=== PATIENT | female | born 2005 ===

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

== ENCOUNTER 2025-06-20 21:47 | Emergency (ER) | payer OTHER, SELFPAY ==
--- NOTE | ~2025-06-20 | XR_ITS ---
CLINICAL HISTORY: pain 1 view chest x-ray. Comparison: None provided Findings: The lungs appear clear. There is no consolidation, effusion, or pneumothorax. Cardiomediastinal silhouette is within normal limits. IMPRESSION: No acute cardiopulmonary abnormality. This document has been electronically signed by: Tyler Norris MD on 06/21/2025 02:28:36
[2025-06-20 22:19] VITALS: BP 105/59; PULSE 89; RESP 16; TEMP 36.8; O2SAT 100; BMI 20.8
--- NOTE | 2025-06-20 22:29 | PC.NURSE ---
urine cups given and educated on obtaining dirty urine for CTNG and clean catch urine for UA. pt verbalizes understanding.
[2025-06-20 22:46] LABS: MANUAL DIFF FLAG NO
[2025-06-20 22:47] LABS: Hematocrit 31.7 % (37.0-47.0); Hemoglobin 10.5 g/dl (12.0-16.0); Imm Gran Abs Auto 0.03 X10*3/uL (0.00-0.03); Imm Gran Pct Auto 0.3 % (0.0-0.4); Lymphocytes Absolute Auto 2.5 X10*3/uL (1.2-4.9); Mean Corpuscular HGB Conc 33.1 g/dl (31.0-35.0); Mean Corpuscular Hemoglobin 28.0 pg (27.0-33.0); Mean Corpuscular Volume 84.5 fL (80.0-98.0); NRBC Abs Auto 0.000 X10*3/uL (0.0-0.012); NRBC Pct Auto 0.0 /100WBC (0.0-0.2); Platelet Count 330 X10*3/uL (160-400); Red Blood Count 3.75 X10*6/uL (4.20-5.50); White Blood Count 9.2 X10*3/uL (4.8-10.8)
[2025-06-20 22:48] LABS: Appearance Urine Clear; Glucose Urine UA Negative (Negative); PH 6.0 (5.0-9.0); Specific Gravity - Urine 1.015 (1.005-1.025); UMIC TRIGGER UACC YES
[2025-06-20 23:07] LABS: Alanine Aminotransferase 8 U/L (0-31); Albumin Level 4.3 g/dL (3.5-5.0); Alkaline Phosphatase 51 U/L (39-117); Anion Gap 13 (12-20); Aspartate Amino Transferase 19 U/L (5-31); Blood Urea Nitrogen 9 mg/dL (9-16); Calcium 8.9 mg/dL (8.4-10.2); Carbon Dioxide 21 mmol/L (22-29); Chloride 111 mmol/L (96-108); Creatinine Clr Calc Pharmacy 91.5; Estimated Glomerular Filt Rate > 60; Lipase 33 U/L (8-78); Magnesium 1.9 mg/dL (1.6-2.6); Potassium 3.7 mmol/L (3.3-5.1); Sodium 141 mmol/L (135-145); Total Protein 7.2 g/dL (6.5-8.0)
[2025-06-20 23:55] VITALS: BP 115/67; PULSE 90; RESP 17; O2SAT 100
--- OUTSIDE RECORDS SUMMARY | 2025-06-21 00:04 | XMS_ITS | Clinical Summary ---
Author Organization [facility] Address [address] [place] [address] Phone Care Team Providers Care Fermentologist Name Role Phone Physician, No Pcp Primary Care Provider Unavaila ble Allergies No known active allergies Encounters Date Type Department Care Team Description 04/25/2025 5:24 AM EDT - 04/25/2025 5:55 AM EDT Emergency [facility] Emergency [address] [place] [address] Braden Sequeira MD Strep pharyngitis (Primary Dx); Hypomagnesemia; Hypokalemia; Anemia, unspecified type Discharge Disposition: Home or Self Care from Last 3 Months Social History Tobacco Use Types Packs/Day Years Used Date Smoking Tobacco: Never Assessed Comments Unknown Sex and Gender Information Value Date Recorded Sex Assigned at Not on file Legal Sex Female 12:19 AM EDT Gender Identity Not on file Sexual Orientation Not on file Last Filed Vital Signs Vital Sign Reading Time Taken Comments Blood Pressure 102/58 04/25/2025 5:35 AM EDT Pulse 111 04/25/2025 5:35 AM EDT Temperature 38 C (100.4 F) 04/25/2025 5:35 AM EDT Respiratory Rate 18 04/25/2025 5:35 AM EDT Oxygen Saturation 100% 04/25/2025 5:35 AM EDT Inhaled Oxygen Concentration - - Weight 49.9 kg (110 lb) 04/25/2025 12:24 AM EDT Height 154.9 cm (5' 1 ) 04/25/2025 12:24 AM EDT Body Mass Index 20.78 04/25/2025 12:24 AM EDT Plan of Treatment Health Maintenance Due Date Last Done Comments Gonorrhea/Chlamydia Screening 2004 Varicella Vaccines (1 of 2 - 13+ 2-dose series) 2017 HPV Vaccines (1 - 3-dose series) 2019 Meningococcal B Vaccine (1 o f 2 - Standard) 2020 DTaP,Tdap,and Td Vaccines (1 - Tdap) 2023 Hepatitis B Vaccines (1 of 3 - 19+ 3-dose series) 2023 Depression Screening 09/14/2024 Annual Well Child Visit (3-2 1 years old) 04/25/2025 HIV Screening 04/25/2025 Hepatitis C Screening 04/25/2025 Social Influencers of Health Screening 04/25/2025 COVID-19 Vaccine (1 - 2023-2 5 season) 2025 Influenza Vaccine (#1) 2025 RSV Immunization Adult Patie nts (1 - 1-dose 75+ series) 2079 HIB Vaccines Aged Out No longer eligi ble based on patient's age to complete this topic Hepatitis A Vaccines Aged Out No long er eligible based on patient's age to complete this topic IPV Vaccines Aged Out No longer eligi ble based on patient's age to complete this topic MMR Vaccines Aged Out No longer eligi ble based on patient's age to complete this topic Meningococcal ACWY Vaccine Aged Out N o longer eligible based on patient's age to complete this topic Pneumococcal Vaccine: Pediat rics (0 to 5 Years) and At-Risk Patients (6 to 49 Years) Aged Out No longer eligible b ased on patient's age to complete this topic RSV Immunization Patients Un alfred 20 months Aged Out No longer eligible b ased on patient's age to complete this topic Procedures Procedure Name Priority Date/Time Associated Diagnosis Comments CAMPOS URINE CULTURE TUBE STAT 04/25/2025 3:08 AM EDT URINALYSIS WITH REFLEX MICROSCOPIC AND CULTURE STAT 04/25/2025 3:08 AM EDT URINALYSIS WITH REFLEX MICROSCOPIC AND CULTURE STAT 04/25/2025 3:08 AM EDT CULTURE URINE STAT 04/25/2025 3:08 AM EDT POC , URINE DIAGNOSTIC STAT 04/25/2025 2:43 AM EDT ECG 12-LEAD STAT 04/25/2025 12:36 AM EDT RAPID STREP A SCREEN STAT 04/25/2025 12:32 AM EDT RESPIRATORY VIRUS PANEL MOLECULAR STUDY STAT 04/25/2025 12:32 AM EDT CBC WITH AUTO DIFFERENTIAL STAT 04/25/2025 12:29 AM EDT MAGNESIUM STAT 04/25/2025 12:29 AM EDT BASIC METABOLIC PANEL STAT 04/25/2025 12:29 AM EDT CBC AND DIFFERENTIAL STAT 04/25/2025 12:29 AM EDT ECG ANNOTATED 04/25/2025 from Last 3 Months Results * (ABNORMAL) Urinalysis with reflex microscopic and culture (04/25/2025 3:08 AM EDT) Specific [place] Urine 1.031(H) 1.003 - 1.030 LAB URINALYSIS - AUTOMATED METHOD 04/25/2025 3:48 AM EDT [facility] pH, Urine 6.0 5.0 - 8.0 pH LAB URINALYSIS - AUTOMATED METHOD 04/25/2025 3:48 AM T [facility] Leukocytes, Urine Trace(A) Negative LAB URINALYSIS - AUTOMATED METHOD 04/25/2025 3:48 AM [facility] Nitrite, Urine Negative Negative LAB URINALYSIS - AUTOMATED METHOD 04/25/2025 3:48 AM EDT [facility] Protein, Urine 100(A) <=Trace mg/dL LAB URINALYSIS - AUTOMATED METHOD 04/25/2025 3:48 AM [facility] Glucose, Urine Negative Negative mg/dL LAB URINALYSIS - AUTOMATED METHOD 04/25/2025 3:48 AM [facility] Ketones, Urine >=80(A) Negative mg/dL LAB URINALYSIS - AUTOMATED METHOD 04/25/2025 3:48 AM [facility] Urobilinogen, Urine 1.0 0.2 - 1.0 mg/dL LAB URINALYSIS - AUTOMATED METHOD 04/25/2025 3:48 AM [facility] Bilirubin, Urine Negative Negative LAB URINALYSIS - AUTOMATED METHOD 04/25/2025 3:48 AM [facility] Blood, Urine Large(A) Negative LAB URINALYSIS - AUTOMATED METHOD 04/25/2025 3:48 AM [facility] RBC, Urine 4 0 - 4 /HPF LAB URINALYSIS - AUTOMATED METHOD 04/25/2025 3:48 AM [facility] WBC, Urine 17.2(H) 0 - 4 /HPF LAB URINALYSIS - AUTOMATED METHOD 04/25/2025 3:48 AM [facility] Squamous Epithelial, Urine >100(H) 0 - 60 /LPF LAB URINALYSIS - AUTOMATED METHOD 04/25/2025 3:48 AM [facility] Bacteria, Urine Few(A) Negative /HPF LAB URINALYSIS - AUTOMATED METHOD 04/25/2025 3:48 AM [facility] Hyaline Casts, Urine 3.2(H) 0 - 3 /LPF LAB URINALYSIS - AUTOMATED METHOD 04/25/2025 3:48 AM [facility] Urine Urine specimen obtained by clean catch procedure / Unknown Non-blood Collection / Unknown 04/25/2025 3:08 AM EDT 04/25/2025 3:08 AM EDT us Femi Louis MD LAB URINE ORDERABLES Final Result Performing Organization Address [facility]/ZIP Co de Phone Number [facility] [address] [place] [address], [place] [phone] * Campos urine culture tube (04/25/2025 3:08 AM EDT) Extra Tube Hold for add-ons. 04/25/2025 5:01 AM EDT [facility] Comment:Auto resulted. Urine Urine specimen obtained by clean catch procedure / Unknown Non-blood Collection / Unknown 04/25/2025 3:08 AM EDT 04/25/2025 3:08 AM EDT Femi Louis MD LAB URINE ORDERABLES Final Result Performing Organization Address [facility] de Phone Number [facility] [address] [place] [address], * Culture urine (04/25/2025 3:08 AM EDT) Culture, Urine >100,000 CFU/mL Mixed bacterial morphotypes present suggestive of possible contamination during collection. Suggest appropriate recollection if clinically indicated. 04/27/2025 11:49 AM EDT [facility] Urine Urine specimen obtained by clean catch procedure / Unknown Non-blood Collection / Unknown 04/25/2025 3:08 AM EDT 04/25/2025 3:48 AM EDT Narrative [facility] - 04/27/2025 11:49 AM EDT Beta Strep Group B noted. The presence of a low colony count of Beta Strep Group B may have clinical significance in women. Femi Louis MD LAB MICROBIOLOGY - GENERAL ORDERABLES Final Result Performing Organization Address City/[facility]/ZIP Co de Phone Number [facility] [address] [place] [address], * POC , urine manually resulted (04/25/2025 2:43 AM EDT) [facility] HCG, Ur POC Negative Negative POC hCG Int QC Pass? Yes Yes Urine Urine specimen obtained by clean catch procedure / Unknown 04/25/2025 2:43 AM EDT Femi Louis MD POINT OF CARE TEST ENTER/ED IT ORDERABLES Final Result * ECG 12 lead (04/25/2025 12:36 AM EDT) [facility] Ventricular Rate ECG 107 BPM GEMUSE Atrial Rate 107 BPM GEMUSE P-R Interval 140 ms GEMUSE QRS Duration 76 ms GEMUSE Q-T Interval 324 ms GEMUSE QTc 432 ms GEMUSE P Wave Royal 67 degrees GEMUSE R Royal 71 degrees GEMUSE T Royal 5 degrees GEMUSE ECG Interpretation Sinus tachycardia No previous ECGs available Confirmed by ROM LEIVA ([id number]) on 04/25/2025 11:39:58 PM GEMUSE 04/25/2025 12:3 6 AM EDT 04/25/2025 11:39 PM EDT Femi Louis MD ECG ORDERABLES Final Resul t GEMUSE * Respiratory virus panel molecular study (04/25/2025 12:32 AM EDT) [facility] Adenovirus Detection by PCR Not Detected Not Detected LAB MICROBIOLOGY METHOD 04/25/2025 2:10 AM EDT [facility] Influenza A PCR Not Detected Not Detected LAB MICROBIOLOGY METHOD 04/25/2025 2:10 AM EDT [facility] Influenza B PCR Not Detected Not Detected LAB MICROBIOLOGY METHOD 04/25/2025 2:10 AM EDT [facility] Coronavirus 229E Not Detected Not Detected LAB MICROBIOLOGY METHOD 04/25/2025 2:10 AM EDT [facility] Coronavirus HKU1 Not Detected Not Detected LAB MICROBIOLOGY METHOD 04/25/2025 2:10 AM EDT [facility] Coronavirus OC43 Not Detected Not Detected LAB MICROBIOLOGY METHOD 04/25/2025 2:10 AM EDT [facility] Coronavirus NL63 Not Detected Not Detected LAB MICROBIOLOGY METHOD 04/25/2025 2:10 AM EDT [facility] Parainfluenza Virus 1 Not Detected Not Detected LAB MICROBIOLOGY METHOD 04/25/2025 2:10 AM EDT [facility] Parainfluenza Virus 2 Not Detected Not Detected LAB MICROBIOLOGY METHOD 04/25/2025 2:10 AM EDT [facility] Parainfluenza Virus 3 Not Detected Not Detected LAB MICROBIOLOGY METHOD 04/25/2025 2:10 AM EDT [facility] Parainfluenza Virus 4 Not Detected Not Detected LAB MICROBIOLOGY METHOD 04/25/2025 2:10 AM EDT [facility] RSV PCR Not Detected Not Detected LAB MICROBIOLOGY METHOD 04/25/2025 2:10 AM EDT [facility] Human Metapneumovirus A and B Not Detected Not Detected LAB MICROBIOLOGY METHOD 04/25/2025 2:10 AM EDT [facility] Rhinovirus/Entero virus Not Detected Not Detected LAB MICROBIOLOGY METHOD 04/25/2025 2:10 AM EDT [facility] Bordetella pertussis Not Detected Not Detected LAB MICROBIOLOGY METHOD 04/25/2025 2:10 AM EDT [facility] Bordetella parapertussis Not Detected Not Detected LAB MICROBIOLOGY METHOD 04/25/2025 2:10 AM EDT [facility] Mycoplasma pneumo by PCR Not Detected Not Detected LAB MICROBIOLOGY METHOD 04/25/2025 2:10 AM EDT [facility] Chlamydia pneumoniae Not Detected Not Detected LAB MICROBIOLOGY METHOD 04/25/2025 2:10 AM EDT [facility] SARS COV-2 Not Detected Not Detected LAB MICROBIOLOGY METHOD 04/25/2025 2:10 AM EDT [facility] Swab Both anterior nares / Unknown Non-blood Collection / Unknown 04/25/2025 12:32 AM EDT 04/25/2025 1:13 AM EDT Narrative [facility] - 04/25/2025 2:10 AM EDT Testing was performed using the Companion Canine Respiratory Pathogen PCR Assay. All results must be correlated with the clinical findings. Results should not be used as the sole basis for diagnosis. False Negative results may occur from the presence of sequence variants in the region targeted by the assay or the presence of inhibitors. Results may be affected by concurrent antiviral/antimicrobial therapy or levels of organisms that are below the limit of detection. Femi Louis MD LAB MICROBIOLOGY - GENERAL ORDERABLES Final Result Performing Organization Address [facility]/ZIP Co de Phone Number [facility] [address] [place] [address], * (ABNORMAL) Rapid strep A screen (04/25/2025 12:32 AM EDT) Strep A Ag Positive(A ) Negative, Invalid 04/25/2025 1:26 AM EDT [facility] Swab Structure of anterior region of neck / Unknown Non-blood Collection / Unknown 04/25/2025 12:32 AM EDT 04/25/2025 1:13 AM EDT Femi Louis MD LAB MICROBIOLOGY - GENERAL ORDERABLES Final Result [facility] [address] [place] [address], * (ABNORMAL) CBC auto differential (04/25/2025 12:29 AM EDT) WBC 12.4(H) 4.8 - 10.8 K/[facility] LAB HEMETOLOGY METHOD 04/25/2025 12:40 AM [facility] RBC 3.80 3.80 - 4.80 M/mcL LAB HEMETOLOGY METHOD 04/25/2025 12:40 AM [facility] Hemoglobin 10.4(L) 11.5 - 16.0 g/dL LAB HEMETOLOGY METHOD 04/25/2025 12:40 AM [facility] Hematocrit 32.7(L) 35.0 - 47.0 % LAB HEMETOLOGY METHOD 04/25/2025 12:40 AM [facility] MCV 85.4 79.0 - 98.0 FL LAB HEMETOLOGY METHOD 04/25/2025 12:40 AM [facility] MCH 27.2 27.0 - 32.0 pcg LAB HEMETOLOGY METHOD 04/25/2025 12:40 AM [facility] MCHC 31.8(L) 32.0 - 37.0 g/dL LAB HEMETOLOGY METHOD 04/25/2025 12:40 AM [facility] RDW 14.3 11.0 - 15.0 % LAB HEMETOLOGY METHOD 04/25/2025 12:40 AM [facility] Platelets 201 130 - 400 K/mcL LAB HEMETOLOGY METHOD 04/25/2025 12:40 AM [facility] MPV 10.4 7.0 - 11.0 FL LAB HEMETOLOGY METHOD 04/25/2025 12:40 AM [facility] NRBC 0.0 <1.0 % LAB HEMETOLOGY METHOD 04/25/2025 12:40 AM [facility] NRBC Absolute 0.00 <0.10 K/mcL LAB HEMETOLOGY METHOD 04/25/2025 12:40 AM [facility] Neutrophils Relative 81.7 % LAB HEMETOLOGY METHOD 04/25/2025 12:40 AM [facility] Lymphocytes Relative 8.4 % LAB HEMETOLOGY METHOD 04/25/2025 12:40 AM [facility] Monocytes Relative 9.0 % LAB HEMETOLOGY METHOD 04/25/2025 12:40 AM [facility] Eosinophils Relative 0.0 % LAB HEMETOLOGY METHOD 04/25/2025 12:40 AM [facility] Basophils Relative 0.2 % LAB HEMETOLOGY METHOD 04/25/2025 12:40 AM [facility] Immature Granulocytes Relative 0.7 % LAB HEMETOLOGY METHOD 04/25/2025 12:40 AM [facility] Neutrophils Absolute 10.13(H) 1.50 - 7.00 K/mcL LAB HEMETOLOGY METHOD 04/25/2025 12:40 AM [facility] Lymphocytes Absolute 1.04 1.00 - 5.00 K/mcL LAB HEMETOLOGY METHOD 04/25/2025 12:40 AM [facility] Monocytes Absolute 1.11(H) 0.20 - 1.00 K/mcL LAB HEMETOLOGY METHOD 04/25/2025 12:40 AM [facility] Eosinophils Absolute 0.00 0.00 - 0.50 K/mcL LAB HEMETOLOGY METHOD 04/25/2025 12:40 AM [facility] Basophils Absolute 0.03 0.00 - 0.20 K/mcL LAB HEMETOLOGY METHOD 04/25/2025 12:40 AM [facility] Immature Granulocytes Absolute 0.09(H) 0.00 - 0.03 K/mcL LAB HEMETOLOGY METHOD 04/25/2025 12:40 AM [facility] Blood Venous blood specimen / Unknown Venipuncture / Unknown 04/25/2025 12:29 AM EDT 04/25/2025 12:34 AM EDT Femi Louis MD LAB BLOOD ORDERABLES Final Result Performing Organization Address [facility]/ZIP Co de Phone Number [facility] [address] [place] [address], [place] [phone] * (ABNORMAL) Magnesium (04/25/2025 12:29 AM EDT) [facility] Magnesium 1.6(L) 1.9 - 2.6 mg/dL LAB CHEMISTRY METHOD 04/25/2025 1:06 AM [facility] Blood Venous blood specimen / Unknown Venipuncture / Unknown 04/25/2025 12:29 AM EDT 04/25/2025 12:34 AM EDT Femi Louis MD LAB BLOOD ORDERABLES Final Result Performing Organization Address [facility] de Phone Number [facility] [address] [place] [address], [place] [phone] * (ABNORMAL) Basic metabolic panel (04/25/2025 12:29 AM EDT) [facility] Sodium 134 133 - 145 mmol/L LAB CHEMISTRY METHOD 04/25/2025 1:06 AM [facility] Potassium 3.1(L) 3.5 - 5.5 mmol/L LAB CHEMISTRY METHOD 04/25/2025 1:06 AM [facility] Chloride 106 96 - 110 mmol/L LAB CHEMISTRY METHOD 04/25/2025 1:06 AM [facility] CO2 22 21 - 32 mmol/L LAB CHEMISTRY METHOD 04/25/2025 1:06 AM [facility] Anion Gap 6 3 - 11 LAB CHEMISTRY METHOD 04/25/2025 1:06 AM [facility] Glucose 105(H) 70 - 100 mg/dL LAB CHEMISTRY METHOD 04/25/2025 1:06 AM EDT [facility] BUN 9 5 - 25 mg/dL LAB CHEMISTRY METHOD 04/25/2025 1:06 AM EDT [facility] Creatinine 0.96 0.50 - 1.10 mg/dL LAB CHEMISTRY METHOD 04/25/2025 1:06 AM EDT [facility] eGFR 87 >=60 mL/min/1. 73m2 LAB CHEMISTRY METHOD 04/25/2025 1:06 AM EDT [facility] Comment:Calculation based on the Chronic Kidney Disease Epidemiology Collaboration (CKD-EPI) equation refit without adjustment for race. BUN/Creatinine Ratio 9.4 LAB CHEMISTRY METHOD 04/25/2025 1:06 AM T [facility] Calcium 8.5 8.5 - 10.5 mg/dL LAB CHEMISTRY METHOD 04/25/2025 1:06 AM [facility] Blood Venous blood specimen / Unknown Venipuncture / Unknown 04/25/2025 12:29 AM EDT 04/25/2025 12:34 AM EDT Femi Louis MD LAB BLOOD ORDERABLES Final Result [facility] [address] [place] [address], * ECG-Annotated (04/25/2025) us Provider Onbase ECG ORDERABLES Final Result from Last 3 Months Insurance MEDICAID - [place] Care Teams Fermentologist Relationship Specialty Start Date End Date Physician, No Pcp PCP - General 04/25/25
--- OUTSIDE RECORDS SUMMARY | 2025-06-21 00:04 | XMS_ITS | Clinical Summary ---
Author Organization [facility] Address [address] [place] [address] Care Team Providers Care Battery Tester Name Role Phone Aleta Durant MD Primary Care Provider [phone] Source Comments PLEASE NOTE, if this patient is a minor, it may be UNLAWFUL to discuss sensitive information that is contained in these records (such as FAMILY PLANNING, MENTAL HEALTH or SUBSTANCE ABUSE) with the minor patient's parent or other person without the patient's specific authorization.[facility] Allergies No known active allergies Medications desmopressin (DDAVP) 0.2 mg tabletIndicatio ns:Enuresis Take 1 tablet by mouth nightly at bedtime. 30 tablet 3 04/18/2014 Active Active Problems No known active problems Social History Tobacco Use Types Packs/Day Years Used Date Smoking Tobacco: Never Assessed Comments Unknown Sex and Gender Information Value Date Recorded Sex Assigned at Not on file Legal Sex Female 7:59 AM PDT Gender Identity Not on file Sexual Orientation Not on file Last Filed Vital Signs Vital Sign Reading Time Taken Comments Blood Pressure 100/50 04/13/2014 2:42 PM EDT Pulse 80 04/13/2014 2:42 PM EDT Temperature 37.5 C (99.5 F) 04/13/2014 2:42 PM EDT Respiratory Rate 20 04/13/2014 2:42 PM EDT Oxygen Saturation - - Inhaled Oxygen Concentration - - Weight 23.1 kg (51 lb) 04/13/2014 2:42 PM EDT Height 121.9 cm (4') 04/13/2014 2:42 PM EDT Body Mass Index 15.56 04/13/2014 2:42 PM EDT Plan of Treatment Not on file Insurance [facility] [address] Member Subscriber Plan / Payer (Ef fective 2014-Present) Name:Tiffanie Lujan Relation to Subscriber:Self Name:Tiffanie Lujan Payer ID:[id number] Group ID:Not on file Type:Medicaid Address: [facility] [id number] [place] [id number] Care Teams Battery Tester Relationship Specialty Start Date End Date Aleta Durnat MD [address] [place] [address] PCP - General Pediatrics 04/13/14
--- NOTE | 2025-06-21 01:04 | ED_ITS ---
HPI - General Adult General Chief complaint: General Medical Stated complaint: vaginal pain/lung pain Time Seen by Provider: 06/21/25 00:29 Source: patient Limitations: no limitations History of Present Illness ED Provider: Zakiya Jenkins PA-C HPI narrative: 19F with no past medical history presents to the ED for evaluation of inguinal/groin pain and stated lung pain. Inguinal/groin pain has been going on for 3 days, started on the right side, now more suprapubic. Describes it as pressure and discomfort, labial pain when wiping. Denies abnormal vaginal discharge, dysuria, urinary frequency, risk for STI exposure. States her lung pain has been chronic, occurring for the last 2 years. It comes on spontaneously, at rest or with exertion, is sharp and lasts up to 5 minutes. For location she points to LUQ and RUQ and states it sometimes radiates to the back of her neck. Worse with movement and inspiration. Unsure if she has associated palpitations. Related Data Allergies Allergy/AdvReac Type Severity Reaction Status Date / Time Seasonal Allergies Allergy Sneezing Verified 06/20/25 22:24 ham Allergy Swelling Uncoded 06/20/25 22:24 Review of Systems 2 Review of Systems: Yes all other systems are reviewed and are negative Constitutional: Constitutional: Reports no additional constitutional complaints and Denies fever(s) Cardiovascular: Cardiovascular: Denies chest pain and Denies dyspnea Respiratory: Respiratory: Denies dyspnea Gastrointestinal: Gastrointestinal: Denies abdominal pain Genitourinary: Genitourinary: Denies difficulty voiding, Denies genital pruritis, Denies genital lesions, Denies dysuria, Denies vaginal discharge and Denies vaginal odor PMFSH Past Medical History Attestation statement: The following information was validated with the patient. Social History Social History Smoked in Last 30 Days: No Use of substances other than those prescribed or required for medical reasons: No Advance Directives: No Do you have a plan to hurt others: No Plan Patient : No Physical Exam ED Vital Signs: Vital Signs - 24 hr 06/20/25 22:19 06/20/25 23:55 06/21/25 02:00 Temperature 98.2 F 98.3 F Pulse Rate 89 90 88 Respiratory Rate 16 17 16 Blood Pressure 105/59 L 115/67 103/53 L Pulse Oximetry 100 100 98 Oxygen Delivery Method Room Air Room Air Room Air 06/21/25 02:28 Temperature 98.3 F Pulse Rate 88 Respiratory Rate 16 Blood Pressure 103/53 L Pulse Oximetry 98 Oxygen Delivery Method Room Air BMI result Body Mass Index 20.8 Const Other: Alert well-appearing General: cooperative, healthy appearing and no acute distress Nutritional Appearance: average body habitus Resp Effort & Inspection: normal respiratory effort Auscultation: clear to auscultation bilaterally Cardio Other: Normal peripheral perfusion Rate: regular rate Rhythm: regular rhythm GI Other: Soft nontender no guarding Inspection: Yes normal to inspection Palpation (GI): Soft to palpation and nontender Other: Normal external genitalia, no lesions no vaginal discharge, no redness or swelling External Female Exam: normal external appearance Skin Other: warm, dry, no rashes or lesions noted Psych Other: cooperative Course Course Course Narrative: I Zakiya Jenkins PA-C have personally interviewed, assessed an exam of the patient. Adriana DELAROSA helped to formulate the documentation Medical Decision Making Medical Decision Making MDM Narrative: 19F with no past medical history presents to the ED for evaluation of inguinal/groin pain and stated lung pain. Inguinal/groin pain has been going on for 3 days, started on the right side, now more suprapubic. Describes it as pressure and discomfort, labial pain when wiping. Denies abnormal vaginal discharge, dysuria, urinary frequency, risk for STI exposure. States her lung pain has been chronic, occurring for the last 2 years. It comes on spontaneously, at rest or with exertion, is sharp and lasts up to 5 minutes. For location she points to LUQ and RUQ and states it sometimes radiates to the back of her neck. Worse with movement and inspiration. Unsure if she has associated palpitations. I have considered the following diagnoses: ectopic , ovarian torsion, ruptured ovarian cyst, inguinal hernia, UTI, folliculitis. Clinical presentation is not consistent with any of the diagnoses. HCG negative. Urine is negative, currently has her menses. No lesions or bumps on physical exam. Etiology of patient's chest wall pain is not clear due to its chronic nature and negative CXR. The patient is not having abdominal pain, she is not having pelvic pain, she has no vaginal discharge no dysuria no risk for STD. She is not the best historian, she struggled with describing an explaining what her symptoms were. She is having pain over the mons pubis, specifically pain with wiping with toilet paper from front to back after urination. She also complains of pain across bilateral lower rib borders for 2 years. I explained to her that obtaining a chest x-ray with likely yield no value, that her symptoms were nonspecific, she would like the chest x-ray. Plan: CXR was wnl. CT/NG pending I have reviewed the following tests: CBC, CMP, HCG, lipase, CT/NG pending Chest x-ray Findings: The lungs appear clear. There is no consolidation, effusion, or pneumothorax. Cardiomediastinal silhouette is within normal limits. IMPRESSION: No acute cardiopulmonary abnormality. Differential Diagnosis Differential Diagnoses: The differential diagnosis associated with the presentation includes see medical decision making Admission/Observation Consideration of admission/observation: Escalation of care including admission/observation considered Not applicable Lab Data MDM Lab Attestation statement: I reviewed the patient's lab results. 06/20/25 22:41 06/20/25 22:41 Labs: Lab Results 06/20/25 Range/Units 22:41 WBC 9.2 (4.8-10.8) X10*3/uL RBC 3.75 L (4.20-5.50) X10*6/uL Hgb 10.5 L (12.0-16.0) g/dl Hct 31.7 L (37.0-47.0) % MCV 84.5 (80.0-98.0) fL MCH 28.0 (27.0-33.0) pg MCHC 33.1 (31.0-35.0) g/dl RDW 15.0 (11.0-16.0) % Plt Count 330 (160-400) X10*3/uL MPV 9.8 (9.4-12.3) fL Immature Gran % (Auto) 0.3 (0.0-0.4) % Neut % (Auto) 62.1 (45-73) % Lymph % (Auto) 26.6 (20-40) % Crane % (Auto) 7.4 (2-11) % Eos % (Auto) 3.1 (0-4) % Baso % (Auto) 0.5 (0-2) % Lymph # (Auto) 2.5 (1.2-4.9) X10*3/uL Crane # (Auto) 0.7 (0.1-1.2) X10*3/uL Eos # (Auto) 0.3 (0.0-0.4) X10*3/uL Baso # (Auto) 0.1 (0.0-0.2) X10*3/uL Abs Immat Gran (auto) 0.03 (0.00-0.03) X10*3/uL Absolute Neuts (auto) 5.7 (2.0-8.3) x10*3/uL Absolute Nucleated RBC 0.000 (0.0-0.012) X10*3/uL Nucleated RBC % (auto) 0.0 (0.0-0.2) /100WBC Sodium 141 (135-145) mmol/L Potassium 3.7 (3.3-5.1) mmol/L Chloride 111 H (96-108) mmol/L Carbon Dioxide 21 L (22-29) mmol/L Anion Gap 13 (12-20) BUN 9 (9-16) mg/dL Creatinine 0.74 (0.5-1.4) mg/dL Estim Creat Clear Calc 91.5 Estimated GFR > 60 Random Glucose 82 (60-115) mg/dL Calcium 8.9 (8.4-10.2) mg/dL Magnesium 1.9 (1.6-2.6) mg/dL Total Bilirubin 0.1 (0.0-1.0) mg/dL AST 19 (5-31) U/L ALT 8 (0-31) U/L Alkaline Phosphatase 51 (39-117) U/L Total Protein 7.2 (6.5-8.0) g/dL Albumin 4.3 (3.5-5.0) g/dL Lipase 33 (8-78) U/L Beta HCG, Quant < 2 mIU/mL Urine Color Yellow Urine Appearance Clear Urine pH 6.0 (5.0-9.0) Ur Specific Meredith 1.015 (1.005-1.025) Urine Protein Trace (Neg-Trace) mg/dL Urine Glucose (UA) Negative (Negative) mg/dL Urine Ketones Negative (Negative) mg/dL Urine Blood Moderate (2+) H (Negative) Urine Nitrite Negative (Negative) Ur Leukocyte Esterase Trace H (Negative) Urine RBC >20 H (0-2) /HPF Urine WBC 0-5 (0-5) /HPF Ur Squamous Epith Cells 3-5 (0-2) /HPF Urine Bacteria None Seen (None Seen) Hyaline Casts 0-2 (0-2) /LPF Radiology Impression Discussion of test interpretation with radiology: I have reviewed the radiologist's reading. Discharge Plan Discharge Clinical Impression: Chest wall pain, Vaginal discharge Patient Disposition: Home, Self-Care Instructions: Chest Wall Pain (ED) Additional Instructions: All of your screening labs including the urinalysis were normal, you have vaginal swabs pending, you were being tested for gonorrhea and chlamydia. You can viewed the patient portal for results within a day, you will also be contacted by someone at the facility if you test positive for either infection. In regard to your chest wall pain, the chest x-ray is negative. Follow up with primary care as needed. Interventions: ED Discharge Assessment Last Done: 06/21/25 02:28 Discharge Date/Time: 06/21/25 02:31 Print Language: Colombian
[2025-06-21 02:00] VITALS: BP 103/53; PULSE 88; RESP 16; TEMP 36.8; O2SAT 98
[2025-06-21 02:28] VITALS: BP 103/53; PULSE 88; RESP 16; TEMP 36.8; O2SAT 98
[2025-06-21 09:55] LABS: CT PCR Urine NOT DETECTED (Not Detect.); NG PCR Urine NOT DETECTED (Not Detect.)
== END 2025-06-21 02:31 | disposition home or self-care (01) ==
PROVIDERS: Emergency Provider Emergency Medicine; PCP Internal Medicine
DX: N89.8 Other specified noninflammatory disorders of vagina (principal); R07.89 Other chest pain
CPT/HCPCS: 36415; 71045; 80053; 81001; 83690; 83735; 84702; 85025; 87491; 87591; 99283; 99284

== ENCOUNTER → 2025-06-21 01:52 | Outpatient (BNV) | payer OTHER, SELFPAY | PROVIDERS: Emergency Provider Emergency Medicine; PCP Internal Medicine; Visit Provider Radiology Diagnostic Radiology | DX: R07.9 Chest pain, unspecified (principal) | CPT/HCPCS: 71045 ==